=== PATIENT | female | born 1970 | race Caucasian/White ===

== ENCOUNTER → 2016-05-03 | Day surgery (SDC) | payer BC ==
[~2016-05-03] MED LIST: Buffered Lidocaine 1% SYR 3ML* 3 ML/SYR SYRINGE INTRADERM ONE; Buffered Lidocaine 1% SYR 3ML* 3 ML/SYR SYRINGE ONE; HYDROmorphone INJ* 1 MG/ML CARPUJECT SYRINGE ONE; Ketorolac INJ* 30 MG/ML 1 ML VIAL ONE; Lidocaine 1% INJ* 10 MG/ML 30 ML SDV ONE; Midazolam* 1 MG/ML 5 ML VIAL (5 MG) ONE; Ondansetron INJ* 2 MG/ML VIAL IV PRN; Ondansetron INJ* 2 MG/ML VIAL ONE; Propofol* 10 MG/ML 20 ML BTL IV PUSH ONE; fentaNYL* 50 MCG/ML 2 ML VIAL (100 MCG VIAL) ONE; oxyCODONE/Acetamin 5/325 MG* TAB ONE
[2016-05-03 07:34] LABS: Manual Entry Verification AS; UR Preg Internal Control QC Line Present; UR Preg Kit Lot# 6060104
[2016-05-03] MEDS: HYDROmorphone INJ* 1 MG/ML CARPUJECT SYRINGE IV PRN ×2 (10:00→10:09)
[2016-05-03 11:01] VITALS: BP 128/75
--- NOTE | 2016-05-03 21:20 | OP ---
OPERATIVE REPORT: DATE OF VISIT: 05/03/16 DATE OF : 70 SURGEON: Calvin Carvajal MD. ANESTHESIA: Local, MAC. PRE-OP DIAGNOSIS: Menorrhagia. POST-OP DIAGNOSIS: Menorrhagia. PROCEDURE: D and C hysteroscopy, endometrial ablation. ESTIMATED BLOOD LOSS: Minimal. SPECIMEN: Includes endometrium. FINDINGS: On exam under anesthesia, uterus was mid position, sounded to 9 cm. On hysteroscopy, the re was a normal cavity with tubal ostia well visualized. No polyps or fibroids were seen within the cavity. DESCRIPTION OF PROCEDURE: The patient identified, procedure identified as a D and C hysteroscopy, e ndometrial ablation. The patient was taken to the operating room and prepped and draped in the usua l fashion in the dorsal lithotomy position under sedation. Paracervical block was placed at 12 o'cl ock and 2 single-tooth tenaculum was placed on the anterior lip of the cervix. A paracervical block was achieved at the 4 and 8 o'clock position. Cervix was easily dilated up to #8 Hegar dilator. A hysteroscope was inserted. The above findings were noted. The hysteroscope was removed and a jesenia p curette was inserted and sharp curettage was performed with a good specimen obtained. The NovaSur e device was opened. The array was checked. The sounding length was 9 cm, cervical length was found to be 4 cm, making the cavity length 5 cm. The NovaSure device was placed. Cavity width opened to 4.5. Power setting of 124. The CO2 perforation test was performed and the device passed. NovaSure was enabled and NovaSure ablation took place for 78 seconds. At the end of the procedure, device w as removed and hysteroscope was reinserted and a good NovaSure ablation was noted throughout the cav ity. Good hemostasis was verified. All instruments were removed from the vagina. All sponge and i nstrument counts were correct and the patient returned to recovery room in stable condition. [id number]/[facility] #: [id number]
== END | disposition home or self-care (01) ==
LOC: OR 07:02
PROVIDERS: ATTEND Obstetrics & Gynecology
DX: N92.0 Excessive and frequent menstruation with regular cycle (principal)
CPT/HCPCS: 81025; 88305; 88342; A9270-GY; J1170; J1885; J2250; J2405; J2704; J3010

== ENCOUNTER 2019-10-21 05:57 | Observation (INO) ==
[2019-10-21] MEDS ORDERED: Lactated Ringers 1000 ml BAG 1,000 ML IV SCH ×2 (06:00→10:00)
[2019-10-21] MEDS ORDERED: Dexamethasone IV 4 MG/ML VIAL 1 ml VIAL IV SLOW PU ONE (06:00)
[2019-10-21] MEDS ORDERED: Famotidine IV 10 MG/ML 2 ml VIAL (20 mg) IV ONE (06:00)
[2019-10-21] MEDS ORDERED: Dexamethasone IV 4 MG/ML VIAL 1 ml VIAL ONE (06:26)
[2019-10-21] MEDS ORDERED: Famotidine IV 10 MG/ML 2 ml VIAL (20 mg) ONE (06:27)
[2019-10-21] MEDS ORDERED: ceFAZolin 2 GM PREMIX in ORs 2 GM/50 ML BAG ONE (06:27)
[2019-10-21] MEDS ORDERED: Midazolam 5 mg/5 ml VIAL 1 mg/ml 5 ml VIAL (5 mg) ONE (07:06)
[2019-10-21] MEDS ORDERED: fentaNYL 250 mcg/5 ml 50 MCG/ML 5 ml VIAL (250 MCG) ONE (07:06)
[2019-10-21] MEDS ORDERED: Propofol 10 MG/ML 20 ML BTL ONE (07:06)
[2019-10-21] MEDS ORDERED: Succinylcholine 200 mg VIAL 20 mg/ml 10 ml VIAL (200 mg) ONE (07:06)
[2019-10-21] MEDS ORDERED: Rocuronium 50 mg VIAL 10 mg/ml 5 ml VIAL (50 mg) ONE ×2 (07:07→08:49)
[2019-10-21] MEDS ORDERED: Lidocaine 2% PF 5 ML VIAL ONE (07:07)
[2019-10-21] MEDS ORDERED: Naloxone 0.4 mg VIAL 0.4 mg/ml 1 ml VIAL IV PRN (07:29)
[2019-10-21] MEDS ORDERED: fentaNYL 100 mcg/2 ml 50 MCG/ML VIAL IV PRN (07:29)
[2019-10-21] MEDS ORDERED: Prochlorperazine 5 mg/ml 2 ml VIAL (10 mg) IV PRN (07:29)
[2019-10-21] MEDS ORDERED: oxyCODONE/Acetamin 5/325 mg TAB PO PRN ×2 (07:29→09:53)
[2019-10-21] MEDS ORDERED: HYDROcodone/ACETAMIN 5/325 mg TAB PO PRN (07:29)
[2019-10-21 07:42] LABS: ABS Eosinophils 0.2 10^3/ul (0-0.6); ABS Lymphocytes 2.2 10^3/ul (1.0-4.8); ABS Monocytes 0.8 10^3/ul (0-0.8); Hematocrit 40 % (35-47); Lymphocyte % 26.3 %; Mean Corpuscular HGB Conc 35 g/dL (31-36); Mean Corpuscular Hemoglobin 29 pg (27-31); Mean Corpuscular Volume 85 fL (80-97); Mean Platelet Volume 9.5 fL (7.4-10.4); Platelet Count 203 10^3/uL (150-450); Red Blood Count 4.77 10^6 /uL (3.70-4.87); Red Cell Distribution Width 13 % (10-15); White Blood Count 8.2 10^3/uL (3.5-10.8)
[2019-10-21] MEDS ORDERED: Phenylephrine 40 mcg/mL 10mL (400mcg) SYRINGE ONE (07:49)
[2019-10-21] MEDS ORDERED: Ondansetron 4 mg VIAL 2 MG/ML 2 ml VIAL ONE (09:22)
[2019-10-21] MEDS ORDERED: Sugammadex 500 MG/5 ML 5 ml VIAL IV PUSH ONE (09:41)
[2019-10-21] MEDS ORDERED: Ondansetron 4 mg VIAL 2 MG/ML 2 ml VIAL IV PRN (09:53)
[2019-10-21] MEDS ORDERED: HYDROmorphone 0.5 MG/0.5 ML SYRINGE IV SLOW PU PRN (09:53)
[2019-10-21 17:28] LABS: Hematocrit 39 % (35-47); Hemoglobin 13.3 g/dL (12.0-16.0)
[2019-10-22 08:13] VITALS: BP 125/68
[2019-10-24] MEDS ORDERED: Scopolamine PATCH Remove NOTE PATCH OFF ONE (06:00)
== END 2019-10-22 09:55 | disposition home or self-care (01) ==
LOC: SSU 05:57 → OR 05:57
PROVIDERS: ADMIT Obstetrics & Gynecology; ATTEND Obstetrics & Gynecology